=== PATIENT | female | born 1995 | race American Indian/Alaskan Native ===

== ENCOUNTER 2019-03-08 18:12 | Inpatient (IN) | payer MEDICAID ==
[2019-03-08] MEDS ORDERED: LACTATED RINGERS 1,000 ML ONE (18:20)
[2019-03-08] MEDS ORDERED: PITOCin/NS 20 UNIT/1000ML DRIP 40,000 MILLIUNITS/2,000 ML BAG IV ONE (18:20)
[2019-03-08] MEDS: LACTATED RINGERS 1,000 ML IV SCH ×2 (18:20→19:59)
[2019-03-08] MEDS ORDERED: MINERAL OIL PO PRN (18:27)
[2019-03-08] MEDS ORDERED: SUBLIMAZE IV PRN (18:27)
[2019-03-08] MEDS ORDERED: ZOFRAN IV PRN ×2 (18:27→19:53)
[2019-03-08] MEDS ORDERED: BRETHINE IVP PRN (18:27)
[2019-03-08] MEDS ORDERED: NUBAIN IV PRN (18:27)
[2019-03-08] MEDS ORDERED: BRETHINE SUB-Q PRN (18:27)
[2019-03-08] MEDS ORDERED: PITOCin/NS 30 UNIT/500ML 30 UNITS/500 ML BAG IV SCH ×2 (19:00)
[2019-03-08] MEDS ORDERED: PITOCin/NS 20 UNIT/1000ML DRIP 20 UNITS/1,000 ML BAG IV SCH ×2 (19:00→20:00)
[2019-03-08] MEDS ORDERED: XYLOCAINE 2% INFILTRATI ONE (19:00)
[2019-03-08 19:21] LABS: Hematocrit 34.4 % (30.3-42.9); Mean Corpuscular HGB Conc 35 % (30-34); Mean Corpuscular Volume 91 fl (79-97); Platelet Count 302 K/mm3 (140-440); Red Blood Count 3.78 M/mm3 (3.65-5.03)
[2019-03-08] MEDS ORDERED: BENADRYL PO PRN (19:53)
[2019-03-08] MEDS ORDERED: TORADOL IV PRN (19:53)
[2019-03-08] MEDS ORDERED: TUCKS PAD TP PRN (19:53)
[2019-03-08] MEDS ORDERED: PHENERGAN PO PRN (19:53)
[2019-03-08] MEDS ORDERED: TYLENOL PO PRN (19:53)
[2019-03-08] MEDS ORDERED: MILK OF MAGNESIA PO PRN (19:53)
[2019-03-08] MEDS ORDERED: PHENERGAN PR PRN (19:53)
[2019-03-08] MEDS ORDERED: LANSINOH TP PRN (19:53)
[2019-03-08] MEDS ORDERED: DULCOLAX PR PRN (19:53)
--- NOTE | 2019-03-08 19:59 | Procedure Note ---
OB Delivery Note - Delivery Date of Delivery: 03/08/19 Surgeon: RALEIGH RICHARD Estimated blood loss: 200cc - Vaginal Delivery presentation: vertex Delivery position: OA Intrapartum events: precipitous labor- <3hr Delivery induction: none Delivery monitor: external FHT, external uterine Route of delivery: Delivery placenta: spontaneous Delivery cord: 3 umbilical vessels Episiotomy: none Delivery laceration: none Anesthesia: none Delivery comments: Patient was noted to be c/c/ -1 and commenced to pushing a viable male at 1945 in [place] [facility] easily delivery of head and shoulders. The placenta was clamped and cut and placed on baby. The oropharynx and nasopharynx suction with bulb suction. The placenta delivered intact with 3 vessel cord at 1950. Apgars 8 and 9. .EBL 200cc. Weight of baby 5 pounds 5 oz. baby and mom bonding together. No lacs noted.
[2019-03-08] MEDS ORDERED: SODIUM CHLORIDE FLUSH SYRINGE 10 ML IV NR (20:00)
--- NOTE | 2019-03-08 20:10 | History and Physical Report ---
History of Present Illness Date of examination: 03/08/19 Date of admission: 03/08/19 18:43 Chief complaint: contractions History of present illness: This is a 23 yo EDC 03/28/19 at 37+2 weeks here for contraction. Walk in patient from [place] brought in by EMS. Records available for review. Past History Past Medical History: other (Hx of pree) Past Surgical History: no surgical history Family/Genetic History: none Social history: , smoking, alcohol abuse, other (+ marijuana) - Obstetrical History Expected Date of Delivery: 03/28/19 Actual Gestation: 37 Week(s) 1 Day(s) : 4 Para: 2 Hx # Term Pregnancies: 2 Number of Pregnancies: 1 Spontaneous Abortions: 2 Induced : 0 Number of Living Children: 3 Medications and Allergies Allergies Allergy/AdvReac Type Severity Reaction Status Date / Time No Known Allergies Allergy Unverified 03/08/19 18:26 Active Meds: Active Medications Acetaminophen (Tylenol) 650 mg PO Q4H PRN PRN Reason: Pain MILD(1-3)/Fever >100.5/[place]AS[place]Y Acetaminophen/Hydrocodone Bitart ([place] 5/325) 2 each PO Q6H PRN PRN Reason: Pain, Moderate (4-6) Bisacodyl (Dulcolax) 10 mg WV BID PRN PRN Reason: Constipation Diphenhydramine HCl (Benadryl) 25 mg PO Q6H PRN PRN Reason: Itching Diphtheria/Tetanus/Acell Pertussis (Boostrix) 0.5 ml IM .ONCE ONE Stop: 03/09/19 19:54 Docusate Sodium (Colace) 100 mg PO BID BETTY Ephedrine Sulfate (Ephedrine Sulfate) 10 mg IV Q2M PRN PRN Reason: Hypotension Fentanyl (Sublimaze) 100 mcg IV Q2H PRN PRN Reason: Labor Pain Last Admin: 03/08/19 19:04 Dose: 100 mcg Documented by: Oxytocin/Sodium Chloride (Pitocin/Ns 20 Unit/1000ml Drip) 20 units in 1,000 mls @ 125 mls/hr IV DIRECT BETTY Last Admin: 03/08/19 19:50 Dose: 125 mls/hr Documented by: Oxytocin/Sodium Chloride (Pitocin/Ns 30 Unit/500ml) 30 units in 500 mls @ 1 mls /hr IV TITR BETTY; Protocol Oxytocin/Sodium Chloride (Pitocin/Ns 30 Unit/500ml) 30 units in 500 mls @ 2 mls/hr IV TITR BETTY; Protocol Lactated Ringer's (Lactated Ringers) 1,000 mls @ 125 mls/hr IV DIRECT BETTY Last Admin: 03/08/19 19:59 Dose: 125 mls/hr Documented by: Oxytocin/Sodium Chloride (Pitocin/Ns 20 Unit/1000ml Drip) 20 units in 1,000 mls @ 250 mls/hr IV DIRECT BETTY Ibuprofen (Ibuprofen) 600 mg PO Q6H BETTY Ketorolac Tromethamine (Toradol) 30 mg IV Q6H PRN PRN Reason: Pain, Moderate (4-6) Stop: 03/13/19 19:52 Magnesium Hydroxide (Milk Of Magnesia) 30 ml PO HS PRN PRN Reason: Constipation Measles/Mumps/Rubella Vaccine Live (M-M-R Ii Vaccine) 0.5 ml SUB-Q .ONCE ONE Stop: 03/09/19 19:54 Mineral Oil (Mineral Oil) 30 ml PO QHS PRN PRN Reason: Constipation Multi-Ingredient Ointment (Lansinoh) 1 applic TP PRN PRN PRN Reason: Sore Nipples Multivitamins/Iron/Calcium ( Vitamin) 1 each PO QDAY [facility] Nalbuphine HCl (Nubain) 10 mg IV Q2H PRN PRN Reason: Pain, Moderate (4-6) Ondansetron HCl (Zofran) 4 mg IV Q8H PRN PRN Reason: Nausea And Vomiting Last Admin: 03/08/19 19:04 Dose: 4 mg Documented by: Ondansetron HCl (Zofran) 4 mg IV Q8H PRN PRN Reason: Nausea And Vomiting Oxycodone/Acetaminophen (Percocet 5/325) 1 tab PO Q6H PRN PRN Reason: Pain, Moderate (4-6) Promethazine HCl (Phenergan) 25 mg WV Q6H PRN PRN Reason: Nausea And Vomiting Promethazine HCl (Phenergan) 25 mg PO Q6H PRN PRN Reason: Nausea And Vomiting Senna/Docusate Sodium (Senokot S) 2 tab PO Q12H [facility] Sodium Chloride (Sodium Chloride Flush Syringe 10 Ml) 10 ml IV PRN NR Terbutaline Sulfate (Brethine) 0.25 mg SUB-Q ONCE PRN PRN Reason: Hyperstimulation/Hypertonicity Terbutaline Sulfate (Brethine) 0.25 mg IVP ONCE PRN PRN Reason: Hyperstimulation/Hypertonicity Witch Madelyn/Glycerin (Tucks Pad) 1 each TP PRN PRN PRN Reason: Hemorrhoid/cleansing/soothing Review of Systems All systems: negative - Vital Signs Vital signs: Vital Signs Temp Pulse Resp BP Pulse Ox 99.2 F 63 22 144/78 100 03/08/19 18:14 03/08/19 18:14 03/08/19 18:14 03/08/19 18:14 03/08/19 18:14 Temp Pulse Resp BP Pulse Ox 99.2 F 68 22 134/83 100 03/08/19 18:14 03/08/19 20:00 03/08/19 18:14 03/08/19 20:00 03/08/19 18:35 - Physical Exam Breasts: Positive: normal Cardiovascular: Regular rate, Normal S1 Lungs: Positive: Clear to auscultation, Normal air movement Abdomen: Positive: normal appearance, soft, normal bowel sounds. Negative: distention, tenderness, guarding Genitourinary (Female): Positive: normal external genitalia, normal perenium Vagina: Positive: normal moisture Uterus: Positive: normal size Anus/Rectum: Positive: normal perianal skin, heme negative Extremities: Positive: normal Deep Tendon Reflex Grade: Normal +2 - Obstetrical FHR: category 1 Cervical Dilatation: 6 Cervical Effacement Percentage: 90 station: -2 Uterine Contraction Pattern: Regular Uterine Tone Measurement Phase: Contraction Uterine Contraction Intensity: Strong/Firm Results Result Diagrams: 03/08/19 19:05 Abnormal lab results 03/08/19 Range/Units 19:05 MCHC 35 H (30-34) % All other labs normal. Assessment and Plan A/P walk in patient IUP 37 weeks Active labor GBS neg records reviewed IVF, labs expect vaginal bleeding
[2019-03-08] MEDS: IBUPROFEN PO SCH (20:55)
[2019-03-08] MEDS: NORCO 5/325 PO PRN (22:25)
[2019-03-08] MEDS: SENOKOT S PO SCH (22:25)
[2019-03-08] MEDS: COLACE PO SCH (22:25)
[2019-03-09] MEDS: PERCOCET 5/325 PO PRN ×2 (00:46→09:36)
[2019-03-09] MEDS: IBUPROFEN PO SCH ×2 (02:44→17:57)
[2019-03-09] MEDS ORDERED: BOOSTRIX IM ONE (06:00)
[2019-03-09] MEDS ORDERED: M-M-R II VACCINE SUB-Q ONE (06:00)
[2019-03-09] MEDS: NORCO 5/325 PO PRN ×2 (06:19→22:15)
[2019-03-09] MEDS: COLACE PO SCH ×2 (09:35→22:15)
[2019-03-09] MEDS: PRENATAL VITAMIN PO SCH (09:36)
[2019-03-09 09:39] LABS: Hematocrit 33.1 % (30.3-42.9)
--- NOTE | 2019-03-09 10:56 | Progress Note ---
Assessment and Plan A/P PPD#1 routine care Subjective - Subjective Date of service: 03/09/19 Interval history: This is a 23 yo EDC 03/28/19 at 37+2 weeks here for contraction. Walk in patient from [place] brought in by EMS. Records available for review. Patient reports: appetite normal, voiding normally, pain well controlled, ambulating normally : doing well Objective - Vital Signs Latest vital signs: Vital Signs Temp Pulse Resp BP BP Pulse Ox 03/09/19 07:46 97.7 F 54 L 20 145/83 99 03/09/19 04:30 98.0 F 53 L 20 143/89 100 03/08/19 22:00 98.4 F 57 L 16 119/75 100 03/08/19 21:03 55 L 145/72 03/08/19 20:45 103 H 136/79 03/08/19 20:30 74 139/85 03/08/19 20:15 52 L 142/84 03/08/19 20:00 68 134/83 03/08/19 19:13 68 127/93 03/08/19 19:08 58 L 138/64 03/08/19 18:35 59 L 100 03/08/19 18:30 59 L 100 03/08/19 18:25 63 100 03/08/19 18:20 67 100 03/08/19 18:15 63 100 03/08/19 18:14 99.2 F 65 22 144/78 144/78 100 Intake and Output 03/08/19 03/09/19 03/09/19 23:59 07:59 15:59 Intake Total 206.25 120 Output Total 900 500 Balance -693.75 -500 120 Intake: IV 206.25 Lactated Ringers 1,000 ml 206.25 @ 125 mls/hr IV DIRECT BETTY Rx#:[id number] Oral 120 Output: Urine 900 500 Void 900 500 Other: Total, Intake Amount 120 Total, Output Amount 900 500 # Voids Void 2 3 1 Weight 104.326 kg Estimated Blood Loss 200 - Exam Breasts: Present: normal Cardiovascular: Present: Regular rate, Normal S1 Lungs: Present: Clear to auscultation, Normal air movement Abdomen: Present: normal appearance, soft, normal bowel sounds. Absent: distention, tenderness, guarding Uterus: Present: normal, firm, fundal height below umbilicus. Absent: bogginess, tenderness Extremities: Present: normal Deep Tendon Reflex Grade: Normal +2 - Labs Labs: Abnormal lab results 03/08/19 Range/Units 19:05 MCHC 35 H (30-34) %
[2019-03-09] MEDS: SENOKOT S PO SCH (22:15)
[2019-03-10] MEDS: IBUPROFEN PO SCH ×2 (03:22→05:29)
[2019-03-10] MEDS: PERCOCET 5/325 PO PRN (06:41)
[2019-03-10] MEDS ORDERED: IBUPROFEN PO SCH ×2 (08:05→09:00)
--- NOTE | 2019-03-10 08:11 | Discharge Summary ---
Providers - Providers Date of Admission: 03/08/19 18:43 Date of discharge: 03/10/19 Attending physician: RALEIGH RICHARD MD Primary care physician: RALEIGH RICHARD MD Hospitalization Reason for admission: active labor Delivery: Procedure details: Please see delivery note. Episiotomy: none Laceration: none Other procedures: none complications: none Discharge diagnosis: IUP at term delivered [place] baby: male Hospital course: Pt admitted in labor and went on to have a spontaneous vaginal delivery. Her course was uncomplicated and she met discharge criteria on PPD#2. She will follow up in 4 wks for her exam. Condition at discharge: Stable Disposition: DC-01 TO HOME OR SELFCARE - Discharge Diagnoses (1) Term of male Status: Acute Plan - Discharge Medications Prescriptions: Ferrous Sulfate [Feosol 325 MG tab] 325 mg PO BID #30 tablet Ibuprofen [Motrin] 600 mg PO Q8H PRN #30 tablet PRN Reason: Pain Ibuprofen [Motrin] 800 mg PO Q8HR PRN #30 tablet PRN Reason: Pain, Moderate (4-6) oxyCODONE /ACETAMINOPHEN [Percocet 5/325] 1 tab PO Q6HR PRN #30 tablet PRN Reason: Pain - Provider Discharge Summary Activity: routine, no sex for 6 weeks, no heavy lifting 4 weeks, no strenuous exercise Diet: routine Instructions: routine Additional instructions: [] Smoking cessation referral if applicable(refer to patient education folder for contact #) [] Refer to [facility] Booklet Call your doctor immediately for: * Fever > 100.5 * Heavy vaginal bleeding ( >1 pad per hour) * Severe persistent headache * Shortness of breath * Reddened, hot, painful area to leg or breast * Drainage or odor from incision. * Keep incision clean and dry at all times and follow doctor's instructions regarding bathing/showering - Follow up plan Follow up: RALEIGH RICHARD MD [Primary Care Provider] - 04/07/19 (Please call to schedule your appt. Please schedule your son's circumcision before he is one month old. )
--- NOTE | 2019-03-10 08:11 | Progress Note ---
Assessment and Plan A: PPD#2 s/p at term P: Discharge today with follow up in 4 wks for exam Subjective - Subjective Date of service: 03/10/19 Principal diagnosis: s/p at term Interval history: Pt without complaints and is asking to go home Patient reports: appetite normal, voiding normally, pain well controlled, ambulating normally [place]: doing well Objective - Vital Signs Latest vital signs: Vital Signs Temp Pulse Resp BP BP Pulse Ox 03/09/19 23:50 98.1 F 51 L 18 119/77 100 03/09/19 16:06 98.2 F 54 L 20 129/88 96 03/09/19 11:47 98.2 F 53 L 20 130/77 97 Intake and Output 03/09/19 03/10/19 03/10/19 22:59 06:59 14:59 Intake Total 360 600 Balance 360 600 Intake: Oral 240 Intake, Free Water 120 600 Other: Total, Intake Amount 240 # Voids Void 1 2 - Exam Breasts: Present: deferred Cardiovascular: Present: Regular rate Lungs: Present: Clear to auscultation Abdomen: Present: soft Uterus: Present: fundal height below umbilicus Extremities: Present: normal
--- NOTE | 2019-03-10 08:40 | Progress Note ---
Subjective - Subjective Date of service: 03/10/19 Principal diagnosis: s/p at term Objective - Vital Signs Latest vital signs: Vital Signs Temp Pulse Resp BP BP Pulse Ox 03/09/19 23:50 98.1 F 51 L 18 119/77 100 03/09/19 16:06 98.2 F 54 L 20 129/88 96 03/09/19 11:47 98.2 F 53 L 20 130/77 97 Intake and Output 03/09/19 03/10/19 03/10/19 22:59 06:59 14:59 Intake Total 360 600 Balance 360 600 Intake: Oral 240 Intake, Free Water 120 600 Other: Total, Intake Amount 240 # Voids Void 1 2
[2019-03-10] MEDS: SENOKOT S PO SCH (10:47)
[2019-03-10] MEDS: COLACE PO SCH (10:47)
[2019-03-10] MEDS: PRENATAL VITAMIN PO SCH (10:48)
[2019-03-10 14:46] VITALS: BP 138/80
== END 2019-03-10 13:40 | disposition home or self-care (01) | DRG 775 ==
LOC: TRG 18:12 → LD 18:43 → OB 21:47
PROVIDERS: ADMIT Obstetrics & Gynecology; ATTEND Obstetrics & Gynecology
PROC: 10E0XZZ Delivery of Products of Conception, External Approach (ICD-10-PCS; principal; 2019-03-08)
DX: O62.3 Precipitate labor (principal); Z3A.37 37 weeks gestation of pregnancy; Z37.0 Single live birth
CPT/HCPCS: 36415; 85014; 85018; 85027; 86592; 86850; 86900; 86901; G0378; J2405; J2590; J3010; J7120